=== PATIENT | female | born 1965 | race Hispanic/Latino ===

== ENCOUNTER 2024-04-27 15:58 | Emergency (ER) | payer OTHER, SELFPAY ==
[2024-04-27 16:12] VITALS: BP 153/77; PULSE 63; RESP 16; TEMP 36.9; O2SAT 99
--- NOTE | 2024-04-27 16:14 | ED.SKABFB ---
HPI - Skin/Abscess/Foreign Bdy General Chief complaint: Skin/Abscess/Foreign Body Stated complaint: rash/burning on stomach and back Time Seen by Provider: 04/27/24 16:16 Source: patient and RN notes reviewed Mode of arrival: ambulatory Limitations: language barrier (outbound sales professional used) History of Present Illness HPI narrative: 58-year-old female with history of diabetes presents with concern for painful rash around her bra line on the right side. She reports it is on the back and chest under the breast MD complaint: rash Related Data Home Medications Medication Instructions Recorded Confirmed amlodipine 5 mg tablet 5 mg PO DAILY 04/27/24 04/27/24 metformin 500 mg tablet 500 mg PO DAILY 04/27/24 04/27/24 Allergies Allergy/AdvReac Type Severity Reaction Status Date / Time No Known Allergies Allergy Unknown Verified 04/27/24 16:01 Review of Systems Review of Systems: CONSTITUTIONAL: Denies malaise, chills, sweats. Reports 1 episode of fever. EYES: Denies redness, or discharge. ENT: Denies rhinorrhea, congestion, swollen lips, swollen tongue CARDIOVASCULAR: Denies chest pain, palpitations, or edema. RESPIRATORY: Denies cough or dyspnea. GASTROINTESTINAL: Denies abdominal pain, nausea, vomiting SKIN: Reports painful burning rash on her back and chest on the right MUSCULOSKELETAL: Denies joint pain or myalgia. NEUROLOGIC: Denies headache. All systems reviewed & are unremarkable except as noted in HPI and below PMFSH Comments At time of signature, agree with nursing past medical, surgical, social and family history. There is no relevant family history pertinent to the presenting complaint Exam Narrative: GENERAL: Well-appearing, well-nourished, and in no acute distress. HEAD: Normocephalic, atraumatic. EYES: PERRLA, conjunctivae clear, and EOMI. ENT: Mucous membranes moist. Oropharynx without edema, erythema or lesions. NECK: Supple. No lymphadenopathy CHEST: Clear to auscultation. No respiratory distress. HEART: Regular rate and rhythm. SKIN: Warm, dry. Zosteriform rash noted on the right upper back and under the bra on the chest NEURO: Alert and oriented x3. PSYCH: Normal mood and affect Course Course Emergency Course: Patient is aware of diagnosis, understands and agrees to treatment plan. Anticipatory guidance given. Patient agrees to follow-up as directed and is aware of reasons to seek care at the emergency department. Portions of this record may have been created with voice recognition software Level of Care: Express Care Visit Vital Signs Vital signs: Vital Signs Temperature 98.5 F 04/27/24 16:12 Pulse Rate 63 04/27/24 16:12 Respiratory Rate 16 04/27/24 16:12 Blood Pressure 153/77 H 04/27/24 16:12 Pulse Oximetry 99 04/27/24 16:12 Oxygen Delivery Room Air 04/27/24 16:12 Temperature 98.5 F 04/27/24 16:12 Pulse Rate 63 04/27/24 16:12 Respiratory Rate 16 04/27/24 16:12 Blood Pressure 153/77 H 04/27/24 16:12 Pulse Oximetry 99 04/27/24 16:12 Oxygen Delivery Room Air 04/27/24 16:12 Reviewed. MDM - Skin/Abscess/Foreign Bdy MDM Narrative Medical decision making narrative: Does not appear at this time to be erythema multiforme, bullous, SJS, TEN; no evidence at this time to suggest RMSF, endocarditis or Lyme disease; patient looks well, nontoxic and is tolerating oral intake; no neurologic signs or symptoms; no headache, photophobia or neck pain; afebrile; appropriate for initial outpatient treatment; discussed the importance of follow-up, patient agrees; question, viral exanthema, contact dermatitis, allergic dermatitis, eczema, urticaria, shingles. No soft palate or uvula edema, no tongue, lip edema or other mucosal involvement, no respiratory compromise, no stridor, no wheezing, no wheezing, no history of syncope, no hypotension, no nausea, vomiting, or diarrhea. Instructed patient to go to nearest ER immediately for any worsening symptoms including
== END 2024-04-27 16:30 | disposition home or self-care (01) ==
PROVIDERS: Emergency Provider Nurse Practitioner; PCP Emergency Medicine
DX: B02.9 Zoster without complications (principal); E11.9 Type 2 diabetes mellitus without complications
CPT/HCPCS: 99213; G0463

== ENCOUNTER 2025-02-01 18:11 | Emergency (ER) | payer OTHER, SELFPAY ==
[2025-02-01 18:18] VITALS: BP 134/70; PULSE 77; RESP 14; TEMP 36.6; O2SAT 100
--- NOTE | 2025-02-01 18:22 | ED.EYEPROB ---
HPI - Eye Problem General Chief complaint: Eye Problems Stated complaint: Right Eye Swelling Time Seen by Provider: 02/01/25 18:22 Source: patient and RN notes reviewed Mode of arrival: ambulatory Limitations: no limitations History of Present Illness HPI Narrative: 59-year-old female presents with concern for painful bump on the right upper eyelid. She reports it has been there for several days, she denies intervention. She denies vision changes or drainage from the eye. chief complaint: eye pain Related Data Home Medications ?Medication ?Instructions ?Recorded ?Confirmed ?Last Taken ?Type amlodipine 5 mg tablet 5 mg PO DAILY 04/27/24 04/27/24 Unknown History metformin 500 mg tablet 500 mg PO DAILY 04/27/24 04/27/24 Unknown History Allergies Allergy/AdvReac Type Severity Reaction Status Date / Time No Known Allergies Allergy Unknown Verified 02/01/25 18:21 Review of Systems Review of Systems: CONSTITUTIONAL: Denies malaise, chills, sweats, or fever. EYES: Denies visual changes. Reports painful bump on the right upper eyelid SKIN: Denies rash or itching. All systems reviewed & are unremarkable except as noted in HPI and below PMFSH Comments At time of signature, agree with nursing past medical, surgical, social and family history. There is no relevant family history pertinent to the presenting complaint Exam Narrative: GENERAL: Well-appearing, well-nourished, and in no acute distress. HEAD: Normocephalic, atraumatic. EYES: PERRLA and EOMI. No nystagmus. Bilateral sclera and conjunctivae clear.. Hordeolum internum noted to the right upper eyelid. no periorbital edema noted ENT: Nares clear. Mucous membranes moist. NECK: Supple. CHEST: No respiratory distress. Speaks in full sentences. HEART: Regular rate and rhythm. SKIN: Warm, dry, no visible rash. NEURO: Alert and oriented x3. PSYCH: Normal mood and affect Course Course Emergency Course: Patient is aware of diagnosis, understands and agrees to treatment plan. Anticipatory guidance given. Patient agrees to follow-up as directed and is aware of reasons to seek care at the emergency department. Portions of this record may have been created with voice recognition software Level of Care: Express Care Visit Vital Signs Vital signs: Vital Signs Temperature 97.9 F 02/01/25 18:18 Pulse Rate 77 02/01/25 18:18 Respiratory Rate 14 02/01/25 18:18 Blood Pressure 134/70 02/01/25 18:18 Pulse Oximetry 100 02/01/25 18:18 Oxygen Delivery Room Air 02/01/25 18:18 Temperature 97.9 F 02/01/25 18:18 Pulse Rate 77 02/01/25 18:18 Respiratory Rate 14 02/01/25 18:18 Blood Pressure 134/70 02/01/25 18:18 Pulse Oximetry 100 02/01/25 18:18 Oxygen Delivery Room Air 02/01/25 18:18 Reviewed. MDM - Eye Problem MDM Narrative Medical decision making narrative: Consideration of the following conditions may be warranted for the presenting problem, they are not final diagnoses: Bacterial conjunctivitis, allergic conjunctivitis, viral conjunctivitis, foreign body, blepharitis, chalazion, hordeolum, corneal abrasion, preseptal cellulitis, orbital cellulitis. No evidence of proptosis, ophthalmoplegia, vision loss, pain with eye movement. Exam findings show no acute concerns or changes; patient is non-toxic appearing and is in no distress. Patient is appropriate for outpatient treatment and follow-up. Critical Care Time Critical Care Time Critical Care Time: No Discharge Plan Discharge Clinical Impression: Hordeolum internum of right upper eyelid Patient Disposition: Home Condition: Stable Instructions: Nichole (ED) Additional Instructions: Do not touch or rub your eye. Use a warm washcloth is often is you can on your eye Use eyedrops as directed You may take Tylenol or ibuprofen for pain Follow-up with PCP or mri special procedures technologist if condition is not improving in 2-3days. Go to the emergency room if you have pain behind your eye, pressure behind your eye, difficulty seeing, or other severe symptoms Patient Language: Martiniquais Prescriptions: No Action lidocaine 5 % cream 1 applic topical TID PRN (Reason: pain) Qty: 30 0RF valacyclovir 1 gram tablet 1,000 mg PO TID 7 Days Qty: 21 0RF metformin 500 mg tablet 500 mg PO DAILY amlodipine 5 mg tablet 5 mg PO DAILY Follow-up/Referrals: Sonny Meza MD [Primary Care Provider] - Time of Disposition: 18:28
== END 2025-02-01 18:35 | disposition home or self-care (01) ==
PROVIDERS: Emergency Provider Nurse Practitioner; PCP Emergency Medicine
DX: H00.021 Hordeolum internum right upper eyelid (principal); E11.9 Type 2 diabetes mellitus without complications; Z79.84 Long term (current) use of oral hypoglycemic drugs; I10 Essential (primary) hypertension
CPT/HCPCS: 99212; G0463